=== PATIENT | female | born 1965 | race African-American/Black ===

== ENCOUNTER 2019-01-09 09:33 | Emergency (ER) | payer OTHER ==
[~2019-01-09] VITALS: Ht 165.1 cm; Wt 68.5 kg
[2019-01-09 09:37] VITALS: BP 137/77
[2019-01-09] MEDS ORDERED: KETOROLAC TROMETHAMINE 15 MG/ML VIAL ONE (10:23)
[2019-01-09] MEDS ORDERED: ACETAMINOPHEN 325 MG TABLET ONE (10:23)
[2019-01-09] MEDS ORDERED: ACETAMINOPHEN 325 MG TABLET PO ONE (10:30)
[2019-01-09] MEDS ORDERED: KETOROLAC TROMETHAMINE INJ 30 MG/ML VIAL IM ONE (10:30)
--- NOTE | 2019-01-09 10:33 | NUR ---
for discharge- [facility] given home ambulatory stable
== END 2019-01-09 10:34 | disposition home or self-care (01) ==
LOC: ER 09:36
DX: H92.03 Otalgia, bilateral (principal); Z98.890 Other specified postprocedural states
CPT/HCPCS: 96372; 99283; A4606; J1885

== ENCOUNTER 2019-01-12 21:47 | Emergency (ER) | payer OTHER ==
[~2019-01-12] VITALS: Ht 165.1 cm; Wt 68.5 kg
[2019-01-12 22:05] VITALS: BP 120/82
[2019-01-12] MEDS ORDERED: oxyCODONE/APAP (5/325 MG) 1 UDTAB TABLET ONE (23:18)
[2019-01-12] MEDS ORDERED: ONDANSETRON 4 MG TAB.RAPDIS ONE (23:18)
[2019-01-12] MEDS ORDERED: oxyCODONE/APAP (5/325 MG) 1 UDTAB TABLET PO ONE (23:30)
[2019-01-12] MEDS ORDERED: ONDANSETRON 4 MG TAB.RAPDIS SL ONE (23:30)
--- NOTE | 2019-01-12 23:51 | NUR ---
Patient discharged to home in stable condition. Written and verbal after care instructions given. Patient verbalizes understanding of instruction.
== END 2019-01-12 23:54 | disposition home or self-care (01) ==
LOC: ER 21:49
DX: S06.0X0A Concussion without loss of consciousness, initial encounter (principal); M54.6 Pain in thoracic spine; R51 Headache; M62.830 Muscle spasm of back; Z98.890 Other specified postprocedural states; V49.49XA Driver injured in collision with other motor vehicles in traffic accident, initial encounter; Y93.89 Activity, other specified; Y92.411 Interstate highway as the place of occurrence of the external cause; Y99.8 Other external cause status
CPT/HCPCS: 99283; A4606; Q0162